=== PATIENT | female | born 1985 | race Caucasian/White ===

== ENCOUNTER 2017-04-11 02:46 | Emergency (ER) | payer OTHER ==
[2017-04-11 04:05] LABS: BASOPHIL 0.3 % (0-2); EOSINOPHIL 0.5 % (0-5); HCT 39.4 % (37.0-47.0); HGB 12.7 g/dl (12.5-16.0); LYMPHOCYTE 18.6 % (15-48); MCH 27.2 pg (25.0-31.0); MCHC 32.2 g/dL (32.0-36.0); MCV 84.4 fL (78.0-100.0); MONOCYTE 7.7 % (0-12); MPV 9.3 fL (6.0-9.5); NEUTROPHIL 72.9 % (41-80); PLT 274 K/uL (150-400); RBC 4.67 M/uL (4.20-5.40); RDW 14.9 % (11.5-14.0); WBC 12.4 K/uL (4.0-10.5)
[2017-04-11 04:26] LABS: ALBUMIN 3.4 g/dL (3.5-5.0); BILIRUBIN - TOTAL 0.3 mg/dL (0.1-1.0); CREATININE 0.6 mg/dL (0.5-1.0); GLOBULIN (CALCULATION) 4.7 g/dL (2.2-4.2); POTASSIUM 4.2 mmol/L (3.5-5.1); TOTAL PROTEIN 8.1 g/dL (6.4-8.3)
[2017-04-11 04:50] LABS: BILIRUBIN NEGATIVE (NEGATIVE); BLOOD NEGATIVE Ery/uL (NEGATIVE); CLARITY CLEAR (CLEAR); COLOR YELLOW (YELLOW); GLUCOSE (U) NORMAL (NORMAL); KETONE (U) NEGATIVE (NEGATIVE); LEUKOCYTES NEGATIVE Leu/uL (NEGATIVE); NITRITE NEGATIVE (NEGATIVE); PROTEIN TRACE (LOW) mg/dL (NEGATIVE); UROBILINOGEN 0.2 mg/dL (0.2-1.0)
== END 2017-04-11 05:22 | disposition home or self-care (01) ==
LOC: FER 02:46
PROVIDERS: Emergency Medicine
DX: R19.7 Diarrhea, unspecified (principal); M54.5 Low back pain; R11.0 Nausea; I10 Essential (primary) hypertension; Z87.19 Personal history of other diseases of the digestive system; Z90.49 Acquired absence of other specified parts of digestive tract; Z98.890 Other specified postprocedural states
CPT/HCPCS: 36415; 80053; 81003; 83690; 85025; J1170; J1885; J2405

== ENCOUNTER 2021-07-18 08:02 | Emergency (ER) | payer OTHER | END 2021-07-18 11:18 | disposition home or self-care (01) | LOC: FER 08:02 | DX: G56.01 Carpal tunnel syndrome, right upper limb (principal); M06.9 Rheumatoid arthritis, unspecified; I10 Essential (primary) hypertension | CPT/HCPCS: 99283; J2930 ==